=== PATIENT | male | born 1980 | race Caucasian/White ===

== ENCOUNTER 2020-01-30 16:31 | Emergency (ER) | payer BC ==
[2020-01-30 16:37] VITALS: TEMP 98.3; BMI 23.3
--- NOTE | 2020-01-30 16:41 | PDOC ---
Rapid Medical Evaluation Chief Complaint: Chest Pain Time Seen by Provider: 01/30/20 16:39 Medical Evaluation: Allergies Allergy/AdvReac Type Severity Reaction Status Date / Time tamsulosin HCl [From Flomax] Allergy Verified 04/08/16 12:39 Vital Signs Temp Pulse Resp BP Pulse Ox 98.3 F 105 H 20 145/92 98 01/30/20 16:32 01/30/20 16:32 01/30/20 16:32 01/30/20 16:32 01/30/20 16:32 01/30/20 16:39 The patient is a 39 y/o M who presents with three days of chest pain. 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 He states that the chest pain is on the L side and exacerbated when he moves or touches it. Feels like he can't cough d/t pain Exam: TTP of the L chest wall Orders: EKG, CXR; defer lab work to provider Pt to proceed to the ER for further evaluation Discharge Disposition - Diagnosis Chest pain - Referrals Referrals: Charissa Thomas MD [Primary Care Provider] - - Patient Instructions - Post Discharge Activity
[2020-01-30] MEDS ORDERED: ACETAMINOPHEN 325 MG TABLET (FP) PO ONE (17:09)
[2020-01-30] MEDS ORDERED: ACETAMINOPHEN 325 MG TABLET (FP) ONE (17:11)
--- NOTE | 2020-01-30 17:22 | PDOC ---
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 Since then he has had muscle aches intermittently. Today he woke up with pain in his left chest. It is focal, mid-clavicular 4th intercostal space. It is brought on by coughing and touching the spot. He took ASA this morning because he was scared this might be cardiac in etiology. Denies h/o cardiac issues, trauma, lung disease, broken ribs, shoulders injuries, and injuries to the arm. Denies cough, hemoptysis, long car/airplane rides, n/v, diaphoresis, LOC, SOB. He believes this is musculoskeletal. PMH: none PSH: none FHx: HTN (mom), uncle of CVA in 60s SHx: smokes 5-6cigs/day x 19years. denies EtOH and illicit drug use. ROS CONSTITUTIONAL: Absent: fever, chills, diaphoresis, generalized weakness, malaise, loss of appetite HEENT: Absent: rhinorrhea, nasal congestion, throat pain, throat swelling, mouth swelling, ear pain, eye pain, visual Changes CARDIOVASCULAR: +Chest Pain Absent: syncope, palpitations, irregular heart rate, lightheadedness, peripheral edema RESPIRATORY: Absent: cough, shortness of breath, dyspnea with exertion, orthopnea, wheezing, stridor, hemoptysis GASTROINTESTINAL: Absent: abdominal pain, abdominal distension, nausea, vomiting, diarrhea GENITOURINARY: Absent: dysuria, frequency, urgency, hesitancy, hematuria, flank pain, genital pain MUSCULOSKELETAL: Absent: myalgia, arthralgia, joint swelling SKIN: Absent: rash, itching, pallor HEMATOLOGIC/IMMUNOLOGIC: Absent: frequent infections NEUROLOGIC: Absent: headache, focal weakness or paresthesias, dizziness, unsteady gait, seizure, mental status changes, bladder or bowel incontinence PSYCHIATRIC: Absent: anxiety, depression, suicidal or homicidal ideation, hallucinations. PE GENERAL: Well developed, well nourished. Awake and alert. No acute distress. HEENT: Normocephalic, atraumatic. PERRLA, EOMI. No conjunctival pallor. Sclera are non- icteric. Moist mucous membranes. Oropharynx is clear. NECK: Supple. Full ROM. No JVD. No thyromegaly. No lymphadenopathy. CARDIOVASCULAR: Regular rate and rhythm. No murmurs, rubs, or gallops. Distal pulses are 2+ and symmetric. PULMONARY/CHEST: No evidence of respiratory distress. Lungs clear to auscultation bilaterally. No wheezing, rales or rhonchi. Chest is tender to palpation in intercostal area to the left of the sternum, 4th IC space. It is focal, occupying a space about the size of a quarter. No tenderness elicited anywhere else. No bruising appreciated anywhere in the chest. ABDOMINAL: Soft. Non-tender. Non-distended. No rebound or guarding. No organomegaly. Normoactive bowel sounds. MUSCULOSKELETAL Normal range of motion at all joints. No bony deformities or tenderness. No CVA tenderness. EXTREMITIES: No cyanosis. Mild clubbing. No edema. No calf tenderness. SKIN: Warm and dry. Normal capillary refill. No rashes. No jaundice. NEUROLOGICAL: Alert, awake, appropriate. Normal speech. Gait is normal without ataxia. PSYCHIATRIC: Cooperative. Good eye contact. Appropriate mood and affect. 39yo otherwise healthy man p/w one day of reproducible CP after straining muscles holding up a patient. He has no other symptoms and reports relief with Tylenol given in ED. Plan: DC home w/ work note. PT requests CXR. Past History - Medical History Allergies/Adverse Reactions: Allergies Allergy/AdvReac Type Severity Reaction Status Date / Time tamsulosin HCl [From Flomax] Allergy Verified 01/30/20 17:02 Home Medications: Ambulatory Orders NK [No Known Home Medication] 01/30/20 COPD: No - Psycho-Social/Smoking History Smoking Status: Yes Smoking History: Current every day smoker Have you smoked in the past 12 months: Yes Number of Cigarettes Smoked Daily: 8 Information on smoking cessation initiated: Yes - Substance Abuse Hx (Audit-C & DAST Scrn) How often the patient has a drink containing alcohol: Monthly or less Score: In Men: 4 or > Positive; In Women: 3 or > Positive: 1 Screen Result (Pos requires Nsg. Audit-10AR): Negative Cardiac Specific PMH - Complaint Specific PMHX GERD: No *Physical Exam - Vital Signs Last Vital Signs Temp Pulse Resp BP Pulse Ox 98.3 F 88 18 131/93 98 01/30/20 16:32 01/30/20 17:23 01/30/20 17:23 01/30/20 17:23 01/30/20 17:23 ED Treatment Course - RADIOLOGY Radiology Studies Ordered: Category Date Time Status CXR [CHEST PA & LAT] [RAD] Stat Radiology 01/30/20 17:13 Ordered - Medications Given in the ED: ED Medications Discontinued Medications Generic Name Dose Route Start Last Admin Trade Name Freq PRN Reason Stop Dose Admin Acetaminophen 975 mg 01/30/20 17:09 01/30/20 17:22 Tylenol - PO 01/30/20 17:10 975 mg ONCE ONE Administration Discharge - Discharge Information Problems reviewed: Yes Clinical Impression/Diagnosis: Chest pain Qualifiers: Chest pain type: intercostal pain Qualified Code(s): R07.82 - Intercostal pain Condition: Good Disposition: HOME - Admission No - Follow up/Referral Referrals: Charissa Thomas MD [Primary Care Provider] - - Patient Discharge Instructions Patient Printed Discharge Instructions: DI for Costochondritis Additional Instructions: You came to the ED because your chest hurt. While here we examined you and deemed the cause to most likely be muscular in etiology. Please follow up with your primary care doctor within seven days of discharge from the ED. Call medical records for the official read of your CXR and come back to the ED with any worsening symptoms. - Post Discharge Activity Work/Back to School Note: Parent(s) Back to Work Note, Back to Work
[2020-01-30 17:27] VITALS: BP 131/93; PULSE 88
--- NOTE | 2020-01-30 17:41 | PDOC ---
Documentation entered by Juan Pablo Almonte SCRIBE, acting as scribe for Danita Hernandez MD. Danita Hernandez MD: This documentation has been prepared by the scribe, Juan Pablo Almonte SCRIBE, under my direction and personally reviewed by me in its entirety. I confirm that the documentation accurately reflects all work, treatment, procedures, and medical decision making performed by me. Attending Attestation - Resident Resident Name: Praneeth Dela Cruz - ED Attending Attestation I have performed the following: I have examined & evaluated the patient, The case was reviewed & discussed with the resident, I agree w/resident's findings & plan, Exceptions are as noted - HPI HPI: 01/30/20 17:30 The patient is a 39 year old male with a significant past medical history of right-sided kidney stone who presents to the ED for evaluation of left sided chest pain that began this morning. He endorses pain is worsened with movement, cough, and touch. 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 The patient reports taking aspirin this morning to no relief. The patient denies cough, shortness of breath. Denies fever, chills nausea, vomiting and/or any other GI symptoms. Denies any symptoms. Denies any other symptoms. Allergies: tamsulosin HCl Social Hx: The patient reports smoking 5-6 cigarettes per day for 19 years. He denies alcohol and illicit drug use. PCP: Charissa Thomas - Physicial Exam PE: 01/30/20 17:37 General: well appearing Chest: CTAB, good air entry, no wheezes rales or rhonchi, +L anterior chest wall ttp reproduces complaint, +mild hypertonicity of L pectoral muscle CVS: + s1 s2, rrr - Medical Decision Making 01/30/20 17:38 39 yo M with atypical chest pain reproducible on exam, likely msk pain, doubt ACS and EKG without ischemic changes. Also unlikely PE as hx and exam more cons istent with msk etiology and patient without any complaints of SOB. Plan: -pain control -cxr without any evidence of PTX or rib fx or infiltrates -d/c with return precautions, recommend PMD f/u and supportive care at home This clinical encounter is taking place during a federal and state health care emergency attributable to the novel [place] Virus pandemic. The [place] of the Department of Health and Human Services has declared, pursuant to the Public Health Service Act 319F-3 (42 U.S.C. 247d-6d), that a covered persons activities related to medical countermeasures against COVID-19 will be immune from liability under Federal and State law. Discharge - Discharge Information Problems reviewed: Yes Clinical Impression/Diagnosis: Chest pain - Follow up/Referral Referrals: Charissa Thomas MD [Primary Care Provider] - - Patient Discharge Instructions - Post Discharge Activity
--- NOTE | 2020-01-31 09:33 | EKG ---
Test Reason : Blood Pressure : / mmHG Vent. Rate : 093 BPM Atrial Rate : 093 BPM P-R Int : 132 ms QRS Dur : 084 ms QT Int : 336 ms P-R-T Axes : 047 074 018 degrees QTc Int : 417 ms NORMAL SINUS RHYTHM WITH SINUS ARRHYTHMIA NORMAL ECG WHEN COMPARED WITH ECG OF 08-APR-2016 16:22, NO SIGNIFICANT CHANGE WAS FOUND Confirmed by Juanjose Gastelum ([id number]) on 01/31/2020 9:32:59 AM Referred By: Confirmed By:Juanjose Gastelum
== END 2020-01-30 17:47 | disposition home or self-care (01) ==
LOC: JER 16:31
DX: R07.82 Intercostal pain (principal)
CPT/HCPCS: 71046-TC-FY; 93005; 93010; 99284-25